=== PATIENT | female | born 1970 | race African-American/Black ===

== ENCOUNTER 2016-08-10 15:36 | Emergency (ER) | payer SELFPAY ==
--- NOTE | 2016-08-10 15:43 | ER Document Report ---
ED Medical Screen (RME) - General Stated Complaint: ABDOMINAL PAIN Mode of Arrival: Ambulatory Information source: Patient Notes: Patient complains of epigastric and right upper quadrant pain for the past 3 days. Patient states pain comes and goes. Patient denies any cough or cold symptoms. Patient denies any fever. Patient has had some vomiting. I have greeted and performed a rapid initial assessment of this patient. A comprehensive ED assessment and evaluation of the patient, analysis of test results and completion of the medical decision making process will be conducted by additional ED providers. TRAVEL OUTSIDE OF THE [place] IN LAST 30 DAYS: No - Related Data Allergies/Adverse Reactions: No Known Allergies Allergy (Verified 08/10/16 15:42) Past Medical History Pulmonary Medical History: Reports: Hx Asthma GI Medical History: Reports: Hx Gastroesophageal Reflux Disease Past Surgical History: Reports: Hx Abdominal Surgery - Laparoscopy for ovarian cysts, Hx Hysterectomy - Immunizations Immunizations up to date: Yes Hx Diphtheria, Pertussis, Tetanus Vaccination: Yes Physical Exam - Vital signs Vitals: Temp Pulse Resp BP Pulse Ox 98.1 F 68 20 151/87 H 99 08/10/16 15:40 08/10/16 15:40 08/10/16 15:40 08/10/16 15:40 08/10/16 15:40 - Abdominal Tenderness: Tender - Epigastric, right upper quadrant Course - Vital Signs Vital signs: Temp Pulse Resp BP Pulse Ox 98.1 F 68 20 151/87 H 99 08/10/16 15:40 08/10/16 15:40 08/10/16 15:40 08/10/16 15:40 08/10/16 15:40
[2016-08-10 16:51] LABS: APPEARANCE,URINE CLEAR; BILIRUBIN,URINE NEGATIVE (NEGATIVE); GLUCOSE, URINE NEGATIVE (NEGATIVE); KETONES,URINE NEGATIVE (NEGATIVE); LEUKOCYTE ESTERASE,URINE NEGATIVE (NEGATIVE); NITRITE,URINE NEGATIVE (NEGATIVE); PROTEIN,URINE NEGATIVE (NEGATIVE); URINE SPECIFIC GRAVITY 1.011
[2016-08-10 16:54] LABS: ABSOLUTE BASOPHILS # (AUTO) 0.1 10^3/uL (0.0-0.2); ABSOLUTE EOSINOPHILS # (AUTO) 0.2 10^3/uL (0.0-0.6); ABSOLUTE LYMPHOCYTES (AUTO) 2.9 10^3/uL (0.5-4.7); ABSOLUTE MONOCYTES (AUTO) 0.6 10^3/uL (0.1-1.4); ABSOLUTE NEUT (AUTO) 5.1 10^3/uL (1.7-8.2); BASOPHILS % (AUTO) 0.6 % (0-2); EOSINOPHILS % (AUTO) 2.5 % (0-6); HEMATOCRIT 41.7 % (36.0-47.0); HEMOGLOBIN 13.1 g/dL (12.0-15.5); HGB HCT DIFFERENCE -2.4; LYMPHOCYTES % (AUTO) 32.4 % (13-45); MEAN CORPUSCULAR HEMOGLOBIN 27.1 pg (27.0-33.4); MEAN CORPUSCULAR HGB CONC 31.4 g/dL (32.0-36.0); MEAN CORPUSCULAR VOLUME 86 fl (80-97); MONOCYTES % (AUTO) 6.5 % (3-13); RED BLOOD COUNT 4.83 10^6/uL (3.72-5.28); RED CELL DISTRIBUTION WIDTH 14.1 % (11.5-14.0); WHITE BLOOD COUNT 8.9 10^3/uL (4.0-10.5)
[2016-08-10 17:12] LABS: ALANINE AMINOTRANSFERASE 839 U/L (9-52); ALBUMIN 3.7 g/dL (3.5-5.0); ALKALINE PHOSPHATASE 148 U/L (38-126); ANION GAP 8 (5-19); ASPARTATE AMINO TRANSFERASE 557 U/L (14-36); BILIRUBIN,TOTAL 1.7 mg/dL (0.2-1.3); BLOOD UREA NITROGEN 12 mg/dL (7-20); CARBON DIOXIDE 32 mmol/L (22-30); CHLORIDE 100 mmol/L (98-107); CREATININE RESULT 0.83 mg/dL (0.52-1.25); GLUCOSE 91 mg/dL (75-110); LIPASE 79.5 U/L (23-300); POTASSIUM 3.7 mmol/L (3.6-5.0); SODIUM 139.8 mmol/L (137-145); TOTAL PROTEIN 6.8 g/dL (6.3-8.2)
--- NOTE | 2016-08-10 18:26 | ER Document Report ---
ED GI/ - General Chief Complaint: Abdominal Pain Stated Complaint: ABDOMINAL PAIN Time seen by provider: 18:24 Mode of Arrival: Ambulatory Information source: Patient TRAVEL OUTSIDE OF THE [place] IN LAST 30 DAYS: No - HPI Patient complains to provider of: Abdominal pain Onset: Yesterday Timing/Duration: Sudden Quality of pain: Sharp, Stabbing Severity at maximum: Severe Severity in ED: Mild Location: Epigastric Associated symptoms: Nausea. denies: Diarrhea, Dysuria, Fever, Vomiting Exacerbated by: Denies Relieved by: Denies Similar symptoms previously: No Recently seen / treated by doctor: No Notes: 08/10/16 18:39 Patient is a 46-year-old female presenting to the emergency room complaining of sharp stabbing pain in the epigastric region started at approximately 2 AM Tuesday morning, she reports nausea associated with it, generalized weakness and darkish colored urine, she denies any vomiting or diarrhea, no fever, no urinary symptoms, patient reports her symptoms have actually improved over the weekend, however she works in a doctor's office and she did a urinalysis today which showed bilirubin in her urine so she came to the emergency room for evaluation, patient has been tolerating by mouth intake without any difficulty and pain is almost completely resolved at time of exam - Related Data Allergies/Adverse Reactions: No Known Allergies Allergy (Verified 08/10/16 15:42) Past Medical History - General Information source: Patient - Social History Smoking Status: Never Smoker Chew tobacco use (# tins/day): No Frequency of alcohol use: Occasional Drug Abuse: None Family History: Reviewed & Not Pertinent Patient has suicidal ideation: No Patient has homicidal ideation: No Pulmonary Medical History: Reports: Hx Asthma Renal/ Medical History: Denies: Hx Peritoneal Dialysis GI Medical History: Reports: Hx Gastroesophageal Reflux Disease Past Surgical History: Reports: Hx Abdominal Surgery - Laparoscopy for ovarian cysts, Hx Hysterectomy - Immunizations Immunizations up to date: Yes Hx Diphtheria, Pertussis, Tetanus Vaccination: Yes Review of Systems - Review of Systems Constitutional: No symptoms reported. denies: Fever EENT: No symptoms reported Cardiovascular: No symptoms reported Respiratory: No symptoms reported Gastrointestinal: Abdominal pain, Nausea. denies: Diarrhea, Vomiting, Poor appetite, Poor fluid intake Genitourinary: No symptoms reported. denies: Dysuria Female Genitourinary: No symptoms reported Musculoskeletal: No symptoms reported Skin: No symptoms reported Hematologic/Lymphatic: No symptoms reported Neurological/Psychological: No symptoms reported -: Yes All other systems reviewed and negative Physical Exam - Vital signs Vitals: Temp Pulse Resp BP Pulse Ox 98.1 F 68 20 151/87 H 99 08/10/16 15:40 08/10/16 15:40 08/10/16 15:40 08/10/16 15:40 08/10/16 15:40 Interpretation: Normal - General General appearance: Appears well, Alert - HEENT Head: Normocephalic, Atraumatic Eyes: Normal Conjunctiva: Normal Extraocular movements intact: Yes Eyelashes: Normal Pupils: PERRL Mouth/Lips: Normal Mucous membranes: Normal - Respiratory Respiratory status: No respiratory distress - Cardiovascular Rhythm: Regular - Abdominal Inspection: Normal Distension: No distension Bowel sounds: Normal Tenderness: Tender - Mild epigastric Organomegaly: No organomegaly - Back Back: Normal, Nontender - Extremities General upper extremity: Normal inspection, Nontender, Normal color, Normal ROM , Normal temperature General lower extremity: Normal inspection, Nontender, Normal color, Normal ROM , Normal temperature, Normal weight bearing. No: Bon's sign - Neurological Neuro grossly intact: Yes Cognition: Normal Orientation: AAOx4 [place] Coma Scale Eye Opening: Spontaneous [place] Coma Scale Verbal: Oriented [place] Coma Scale Motor: Obeys Commands [place] Coma Scale Total: 15 Speech: Normal Motor strength normal: LUE, RUE, LLE, RLE Sensory: Normal - Psychological Associated symptoms: Normal affect, Normal mood - Skin Skin Temperature: Warm Skin Moisture: Dry Skin Color: Normal Course - Re-evaluation Re-evalutation: 08/10/16 18:41 Laboratory results discussed with patient at bedside which are significant for increased AST and ALT, total bili is 1.7, however direct bili is 0, ultrasound shows gallstones with no signs of obstruction, lipase is normal, patient symptoms have improved significantly since onset, she is tolerating by mouth intake, she has declined any pain medication at present time, therefore patient was given a copy of her labs and a slip to have outpatient labs done in approximately one week to ensure that her liver enzymes are trending downward, symptoms likely related to viral illness, she was informed to return to the nearest emergency room immediately if her symptoms should worsen in any way, she develops a fever, food or fluid intolerance, increased pain, or yellowish discoloration to her skin, or any additional concerning findings, patient acknowledges understanding and agreement with this plan - Vital Signs Vital signs: Temp Pulse Resp BP Pulse Ox 98.1 F 68 20 151/87 H 99 08/10/16 15:40 08/10/16 15:40 08/10/16 15:40 08/10/16 15:40 08/10/16 15:40 - Laboratory Result Diagrams: 08/10/16 16:30 08/10/16 16:30 Laboratory results interpreted by me: 08/10/16 08/10/16 08/10/16 16:30 16:30 16:30 MCHC 31.4 L RDW 14.1 H Carbon Dioxide 32 H Total Bilirubin 1.7 H AST 557 H ALT 839 H Alkaline Phosphatase 148 H Urine Urobilinogen 4.0 H - Diagnostic Test Radiology reviewed: Image reviewed, Reports reviewed Discharge - Discharge Clinical Impression: Gallstones, Elevated liver enzymes Abdominal pain Qualifiers: Abdominal location: epigastric Qualified Code(s): R10.13 - Epigastric pain Condition: Stable Disposition: HOME, SELF-CARE Instructions: Abdominal Pain ([facility]), Gallbladder Disease ([facility]), Liver Function Abnormality ([facility]), Family Physicians / Practices Additional Instructions: Follow up with your primary care provider in one to 2 days. Return to the emergency room immediately if symptoms worsen or any additional concerns. Have labs repeated in approximately one week to ensure that liver enzymes are declining. Forms: Follow-Up Laboratory Testing, Elevated Blood Pressure
[2016-08-10 19:10] VITALS: BP 145/78
== END 2016-08-10 19:07 | disposition home or self-care (01) ==
LOC: ER 15:36
DX: K80.80 Other cholelithiasis without obstruction (principal); R94.5 Abnormal results of liver function studies; R10.13 Epigastric pain; R11.0 Nausea
CPT/HCPCS: 36415; 76705; 80053; 81001; 83690; 85025; 99284

== ENCOUNTER 2016-08-17 05:55 | Inpatient (IN) | payer BC ==
[2016-08-17 06:39] LABS: ABSOLUTE EOSINOPHILS # (AUTO) 0.1 10^3/uL (0.0-0.6); ABSOLUTE LYMPHOCYTES (AUTO) 1.7 10^3/uL (0.5-4.7); ABSOLUTE MONOCYTES (AUTO) 0.8 10^3/uL (0.1-1.4); ABSOLUTE NEUT (AUTO) 8.6 10^3/uL (1.7-8.2); BASOPHILS % (AUTO) 0.3 % (0-2); EOSINOPHILS % (AUTO) 0.7 % (0-6); HEMATOCRIT 40.1 % (36.0-47.0); HGB HCT DIFFERENCE -1.1; LYMPHOCYTES % (AUTO) 15.4 % (13-45); MEAN CORPUSCULAR HEMOGLOBIN 27.7 pg (27.0-33.4); MEAN CORPUSCULAR HGB CONC 32.5 g/dL (32.0-36.0); MEAN CORPUSCULAR VOLUME 85 fl (80-97); RED BLOOD COUNT 4.71 10^6/uL (3.72-5.28); RED CELL DISTRIBUTION WIDTH 13.7 % (11.5-14.0); SEGMENTED NEUTROPHILS % (AUTO) 76.6 % (42-78); WHITE BLOOD COUNT 11.3 10^3/uL (4.0-10.5)
[2016-08-17] MEDS ORDERED: ONDANSETRON HCL INJ/PF 4 MG/2 ML SDV IV ONE (06:46)
[2016-08-17] MEDS ORDERED: MORPHINE SULFATE 10 MG/ML INJ IV ONE ×2 (06:46→19:00)
[2016-08-17 06:47] LABS: ALANINE AMINOTRANSFERASE 302 U/L (9-52); ALKALINE PHOSPHATASE 122 U/L (38-126); ANION GAP 12 (5-19); ASPARTATE AMINO TRANSFERASE 227 U/L (14-36); BILIRUBIN,TOTAL 1.3 mg/dL (0.2-1.3); BLOOD UREA NITROGEN 13 mg/dL (7-20); CALCIUM 9.9 mg/dL (8.4-10.2); CARBON DIOXIDE 26 mmol/L (22-30); CHLORIDE 103 mmol/L (98-107); CREATININE RESULT 0.78 mg/dL (0.52-1.25); GLUCOSE 144 mg/dL (75-110); LIPASE 70.6 U/L (23-300); POTASSIUM 4.2 mmol/L (3.6-5.0); SODIUM 141.1 mmol/L (137-145); TOTAL PROTEIN 6.7 g/dL (6.3-8.2)
--- NOTE | 2016-08-17 07:24 | ER Document Report ---
ED General - General Chief Complaint: Abdominal Pain Stated Complaint: RIGHT SIDE FLANK PAIN Mode of Arrival: Ambulatory Information source: Patient Notes: 46-year-old female presents with complaints of epigastric abdominal pain. Patient notes she was here one week prior was diagnosed with elevated liver enzymes, patient was told to follow-up for lab work in 1 week, patient states she was do lab work tomorrow. Denies any fevers admits to nausea, notes pain had improved but started up again this morning TRAVEL OUTSIDE OF THE [place] IN LAST 30 DAYS: No - HPI Onset: Just prior to arrival Onset/Duration: Sudden Quality of pain: Sharp Severity: Mild Pain Level: 1 Associated symptoms: Nausea Exacerbated by: Denies Relieved by: Denies Similar symptoms previously: Yes Recently seen / treated by doctor: Yes - Related Data Allergies/Adverse Reactions: No Known Allergies Allergy (Verified 08/10/16 15:42) Past Medical History - Social History Smoking Status: Never Smoker Cigarette use (# per day): No Chew tobacco use (# tins/day): No Smoking Education Provided: No Frequency of alcohol use: Occasional Drug Abuse: None Family History: Reviewed & Not Pertinent Patient has suicidal ideation: No Patient has homicidal ideation: No Pulmonary Medical History: Reports: Hx Asthma Renal/ Medical History: Denies: Hx Peritoneal Dialysis GI Medical History: Reports: Hx Gastroesophageal Reflux Disease Past Surgical History: Reports: Hx Abdominal Surgery - Laparoscopy for ovarian cysts, Hx Hysterectomy - Immunizations Immunizations up to date: Yes Hx Diphtheria, Pertussis, Tetanus Vaccination: Yes Review of Systems - Review of Systems Notes: REVIEW OF SYSTEMS: CONSTITUTIONAL : Denies fever, chills, or sweats. Denies recent illness. EENT: Denies eye, ear, throat, or mouth pain or symptoms. Denies nasal or sinus congestion or discharge. Denies throat, tongue, or mouth swelling or difficulty swallowing. CARDIOVASCULAR: Denies chest pain. Denies palpitations or racing or irregular heart beat. Denies ankle edema. RESPIRATORY: Denies cough, cold, or chest congestion. Denies shortness of breath, difficulty breathing, or wheezing. GASTROINTESTINAL: Admits to abdominal pain GENITOURINARY: Denies difficulty urinating, painful urination, burning, frequency, blood in urine, or discharge. FEMALE GENITOURINARY: Denies vaginal bleeding, heavy or abnormal periods, irregular periods. Denies vaginal discharge or odor. MUSCULOSKELETAL: Denies back or neck pain or stiffness. Denies joint pain or swelling. SKIN: Denies rash, lesions or sores. HEMATOLOGIC : Denies easy bruising or bleeding. LYMPHATIC: Denies swollen, enlarged glands. NEUROLOGICAL: Denies confusion or altered mental status. Denies passing out or loss of consciousness. Denies dizziness or lightheadedness. Denies headache. Denies weakness or paralysis or loss of use of either side. Denies problems with gait or speech. Denies sensory loss, numbness, or tingling. Denies seizures. PSYCHIATRIC: Denies anxiety or stress. Denies depression, suicidal ideation, or homicidal ideation. ALL OTHER SYSTEMS REVIEWED AND NEGATIVE. Dictation was performed using [employer] voice recognition software PHYSICAL EXAMINATION: GENERAL: Well-appearing, well-nourished and in no acute distress. HEAD: Atraumatic, normocephalic. EYES: Pupils equal round and reactive to light, extraocular movements intact, conjunctiva are normal. ENT: Nares patent, oropharynx clear without exudates. Moist mucous membranes. NECK: Normal range of motion, supple without lymphadenopathy LUNGS: Breath sounds clear to auscultation bilaterally and equal. No wheezes rales or rhonchi. HEART: Regular rate and rhythm without murmurs ABDOMEN: Soft, tender in epigastric region with out any rebound or guarding Female : deferred Musculoskeletal: Normal range of motion, no pitting or edema. No cyanosis. NEUROLOGICAL: Cranial nerves grossly intact. Normal speech, normal gait. Normal sensory, motor exams PSYCH: Normal mood, normal affect. SKIN: Warm, Dry, normal turgor, no rashes or lesions noted. Physical Exam - Vital signs Vitals: Temp Pulse Resp BP Pulse Ox 97.5 F 66 20 114/82 97 08/17/16 06:01 08/17/16 06:01 08/17/16 06:01 08/17/16 06:01 08/17/16 06:01 Course - Re-evaluation Re-evalutation: 08/17/16 07:23 Physical examination does note tenderness, patient was given nausea pain control. Her liver enzymes do note improvement, I'm awaiting ultrasound at this time 08/17/16 08:44 Patient's liver enzymes have improved however ultrasound has positive Scott sign with gallstones, I did speak with the surgeon who will admit the patient to his service - Vital Signs Vital signs: Temp Pulse Resp BP Pulse Ox 97.5 F 66 20 114/82 97 08/17/16 06:01 08/17/16 06:01 08/17/16 06:01 08/17/16 06:01 08/17/16 06:01 - Laboratory Result Diagrams: 08/17/16 06:20 08/17/16 06:20 Laboratory results interpreted by me: 08/17/16 08/17/16 06:20 06:20 WBC 11.3 H Absolute Neutrophils 8.6 H Glucose 144 H AST 227 H ALT 302 H - Diagnostic Test Radiology reviewed: Image reviewed, Reports reviewed Discharge - Discharge Clinical Impression: Gallstones Abdominal pain Qualifiers: Abdominal location: epigastric Qualified Code(s): R10.13 - Epigastric pain Condition: Stable Disposition: ADMITTED INPATIENT Admitting Provider: Surgicalist Unit Admitted: Surgical Floor
[2016-08-17 09:02] LABS: APPEARANCE,URINE SLIGHTLY-CLOUDY; BILIRUBIN,URINE NEGATIVE (NEGATIVE); GLUCOSE, URINE NEGATIVE (NEGATIVE); KETONES,URINE NEGATIVE (NEGATIVE); LEUKOCYTE ESTERASE,URINE NEGATIVE (NEGATIVE); NITRITE,URINE NEGATIVE (NEGATIVE); PROTEIN,URINE NEGATIVE (NEGATIVE); URINE SPECIFIC GRAVITY 1.026
[2016-08-17] MEDS ORDERED: MORPHINE SULFATE 10 MG/ML INJ IV PRN (18:01)
[2016-08-17] MEDS ORDERED: ONDANSETRON HCL INJ/PF 4 MG/2 ML SDV IV PRN (18:02)
[2016-08-17] MEDS ORDERED: MORPHINE SULFATE 10 MG/ML INJ ONE (18:11)
[2016-08-17] MEDS ORDERED: INFLUENZA ADLT QUAD (36MOS+) 2016-17 VAC 0.5 ML SYR IM PRN (18:57)
[2016-08-17] MEDS: PIPERACILLIN SODIUM/TAZOBACTAM 3.375 GM in NORMAL SALINE 100 ML IV SCH (20:34)
--- NOTE | 2016-08-17 20:53 | PDOC H&P ---
History of Present Illness Admission Date/PCP: 08/17/16 18:09 History of Present Illness: CATALINO OCONNOR is a 46 year old -[place] female first presented to the emergency room approximately one week ago with acute onset of epigastric and right upper quadrant pain. 10 out of 10. Sharp. Radiated to her right flank and back. Pain was severe for 2 hours then gradually abated. also had tremors , itching, nausea and vomiting, dark urine, itching, shortness of breath. She presented to the emergency room. LFTs were elevated. She was scheduled in one week for recheck. She did not make it a complete week before her pain recurred. pain recurred today at 2 AM. She was awoken from sleep with severe, sharp, 10/10, epigastric, right upper quadrant in which radiated to her back. Also had shortness of breath, nausea, vomiting. [place] flush. ROS also positive for headache, darker urine, but not as dark as last week, itching but not as much as last week. Right upper quadrant ultrasound was obtained which revealed cholelithiasis and a positive Scott sign but otherwise normal. White count is mildly elevated. Surgery was consulted. Patient has had severe angioedema of unknown etiology. Past surgical history: Hysterectomy and laparoscopic surgery for ovarian cyst. Medications: Nexium and hydrochlorothiazide. Allergies: She is allergic to shrimp, peanuts, blueberries, blackberries, raspberries. Family history: Diabetes, heart disease, hypertension. Mother had a heparin allergy, otherwise denies any family or personal history of bleeding disorders, blood clots or anesthesia problems. Past Medical History Cardiac Medical History: Reports: Hypertension EENT Medical History: Reports: Other - Angioedema GI Medical History: Reports: Gastroesophageal Reflux Disease Past Surgical History Past Surgical History: Reports: Hysterectomy, Other - Laparoscopic surgery for ovarian cyst Social History Information Source: Patient Lives with: Family Smoking Status: Never Smoker Frequency of Alcohol Use: Occasional - 1 or 2 glasses of wine per week Hx Recreational Drug Use: No Drugs: None Hx Prescription Drug Abuse: No Family History Family History: CAD - Both mother and father with heart attacks and heart disease., DM, Hypertension Parental Family History Reviewed: Yes Children Family History Reviewed: Yes Sibling(s) Family History Reviewed.: Yes Medication/Allergy Home Medications: No Home Medications 08/17/16 Allergies/Adverse Reactions: blueberry Allergy (Verified 08/17/16 20:43) peanut Allergy (Verified 08/17/16 20:43) raspberry Allergy (Verified 08/17/16 20:43) shrimp Allergy (Verified 08/17/16 20:41) Review of Systems All systems: reviewed and no additional remarkable complaints except as stated Physical Exam Vital Signs: Temp Pulse Resp BP Pulse Ox 98.3 F 57 L 16 127/63 H 100 08/17/16 19:45 08/17/16 19:45 08/17/16 19:45 08/17/16 19:45 08/17/16 19:45 General appearance: PRESENT: no acute distress, obese Head exam: PRESENT: normocephalic Eye exam: PRESENT: EOMI. ABSENT: scleral icterus Mouth exam: PRESENT: neck supple, tongue midline Neck exam: ABSENT: JVD, lymphadenopathy, tenderness, thyromegaly Respiratory exam: PRESENT: clear to auscultation christiano Cardiovascular exam: PRESENT: RRR GI/Abdominal exam: PRESENT: Scott's sign, soft, tenderness - Epigastric and right upper quadrant tenderness. Minor right flank/back tenderness.. ABSENT: distended, guarding, rebound Extremities exam: ABSENT: pedal edema Musculoskeletal exam: ABSENT: deformity Neurological exam: PRESENT: alert, oriented to person, oriented to place, oriented to time, oriented to situation Psychiatric exam: PRESENT: appropriate affect, normal mood Skin exam: ABSENT: jaundice Results Laboratory Results: Labs reviewed Impressions: Abdomen Ultrasound 08/17/16 06:57 IMPRESSION: Cholelithiasis with a positive sonographic Scott's sign. No gallbladder wall thickening or pericholecystic edema. Status: Image reviewed by me Assessment & Plan - Diagnosis (1) Cholecystitis, acute with cholelithiasis Qualifiers: Cholelithiasis location: gallbladder Is this a current diagnosis for this admission?: YesPlan: I suspect her bout of pain, dark urine and itching a week ago involved choledocholithiasis which passed spontaneously. Currently with acute cholecystitis with cholelithiasis. nothing by mouth at midnight. IV fluids. IV antibiotics. SCDs. Incentive spirometry. We discussed laparoscopic cholecystectomy with cholangiogram in detail. Questions were answered. We discussed the risks, benefits and alternatives including , heart attack, stroke, blood clots in the legs, blood clots in lungs, pneumonia, bleeding, infection, hernia, bile leak, failure of symptoms to resolve, long-term diarrhea , damage to surrounding structures such as liver, bladder, bowels, blood vessels or bile duct resulting in serious long-term health issues. We discussed the possibility of retained stone with need for further procedure such as ERCP. Understands and wishes to proceed. (2) GERD (gastroesophageal reflux disease) Is this a current diagnosis for this admission?: YesPlan: Protonix while inpatient. (3) Obesity, Class II, BMI 35-39.9, with comorbidity Is this a current diagnosis for this admission?: Yes (4) Angioedema Is this a current diagnosis for this admission?: YesPlan: Unclear etiology. Will notify anesthesia prior to surgery.
[2016-08-18] MEDS: PIPERACILLIN SODIUM/TAZOBACTAM 3.375 GM in NORMAL SALINE 100 ML IV SCH ×3 (03:22→16:02)
[2016-08-18 06:06] LABS: HEMATOCRIT 38.7 % (36.0-47.0); HEMOGLOBIN 12.5 g/dL (12.0-15.5); HGB HCT DIFFERENCE -1.2; MEAN CORPUSCULAR HEMOGLOBIN 27.9 pg (27.0-33.4); MEAN CORPUSCULAR HGB CONC 32.3 g/dL (32.0-36.0); MEAN CORPUSCULAR VOLUME 87 fl (80-97); RED BLOOD COUNT 4.47 10^6/uL (3.72-5.28); RED CELL DISTRIBUTION WIDTH 14.3 % (11.5-14.0); WHITE BLOOD COUNT 9.8 10^3/uL (4.0-10.5)
[2016-08-18 06:29] LABS: ALANINE AMINOTRANSFERASE 314 U/L (9-52); ALBUMIN 3.1 g/dL (3.5-5.0); ALKALINE PHOSPHATASE 110 U/L (38-126); ANION GAP 9 (5-19); ASPARTATE AMINO TRANSFERASE 162 U/L (14-36); BILIRUBIN,TOTAL 1.2 mg/dL (0.2-1.3); BLOOD UREA NITROGEN 14 mg/dL (7-20); CALCIUM 9.1 mg/dL (8.4-10.2); CARBON DIOXIDE 28 mmol/L (22-30); CHLORIDE 103 mmol/L (98-107); CREATININE RESULT 0.86 mg/dL (0.52-1.25); GLUCOSE 108 mg/dL (75-110); SODIUM 139.7 mmol/L (137-145); TOTAL PROTEIN 5.8 g/dL (6.3-8.2)
[2016-08-18] MEDS ORDERED: ACETAMINOPHEN 325 MG TABLET PO PRN (06:48)
[2016-08-18] MEDS ORDERED: ACETAMINOPHEN 325 MG TABLET ONE (06:54)
[2016-08-18] MEDS ORDERED: LIDOCAINE 1% INJ-PF (10 MG/ML) 30 ML SDV ONE (07:28)
[2016-08-18] MEDS ORDERED: BUPIVACAINE HCL 0.25% /EPINEPHRINE INJ/PF 30 ML SDV ONE (07:28)
[2016-08-18] MEDS ORDERED: PROPOFOL INJ 200 MG/20 ML VIAL IV ONE (09:17)
[2016-08-18] MEDS ORDERED: ACETAMINOPHEN 0 ML IV ONE (09:17)
[2016-08-18] MEDS ORDERED: HYDROMORPHONE HCL INJ/PF 2 MG/ML AMPULE ONE (09:17)
[2016-08-18] MEDS ORDERED: MIDAZOLAM 2 MG/2 ML INJ ONE (09:17)
[2016-08-18] MEDS ORDERED: FENTANYL CITRATE INJ/PF 250 MCG/5 ML AMPULE ONE (09:17)
--- NOTE | 2016-08-18 09:21 | PDOC PROGRESS REPORT ---
Subjective Progress Note for:: 08/18/16 Subjective:: Mild nausea earlier this morning, no vomiting. Still with right upper quadrant pain. Headache. Physical Exam Vital Signs: Temp Pulse Resp BP Pulse Ox 97.7 F 56 L 20 114/59 L 99 08/18/16 08:11 08/18/16 08:11 08/18/16 08:11 08/18/16 08:11 08/18/16 08:11 Intake & Output 08/17/16 08/18/16 08/19/16 06:59 06:59 06:59 Intake Total 500 Balance 500 Weight 114.7 kg General appearance: PRESENT: no acute distress Head exam: PRESENT: normocephalic Eye exam: PRESENT: EOMI Respiratory exam: PRESENT: clear to auscultation christiano Cardiovascular exam: PRESENT: RRR GI/Abdominal exam: PRESENT: Scott's sign, soft, tenderness. ABSENT: distended , guarding, rebound Neurological exam: PRESENT: alert, oriented to situation Psychiatric exam: PRESENT: appropriate affect, normal mood Results Laboratory Results: 08/18/16 05:41 08/18/16 05:41 08/18/16 08/18/16 05:41 05:41 WBC 9.8 RBC 4.47 Hgb 12.5 Hct 38.7 MCV 87 MCH 27.9 MCHC 32.3 RDW 14.3 H Plt Count 268 Sodium 139.7 Potassium 4.0 Chloride 103 Carbon Dioxide 28 Anion Gap 9 BUN 14 Creatinine 0.86 Est GFR ( Amer) > 60 Est GFR (Non-Af Amer) > 60 Glucose 108 Calcium 9.1 Total Bilirubin 1.2 AST 162 H ALT 314 H Alkaline Phosphatase 110 Total Protein 5.8 L Albumin 3.1 L Impressions: Abdomen Ultrasound 08/17/16 06:57 IMPRESSION: Cholelithiasis with a positive sonographic Scott's sign. No gallbladder wall thickening or pericholecystic edema. Assessment & Plan - Diagnosis (1) Cholecystitis, acute with cholelithiasis Qualifiers: Cholelithiasis location: gallbladder Is this a current diagnosis for this admission?: YesPlan: Acute cholecystitis with cholelithiasis. Wishes to proceed with laparoscopic cholecystectomy. Due to her allergy to shrimp and her due to her shrimp allergy and history of angioedema, we will avoid Betadine or iodine prep. We will also forego Isovue contrast for the cholangiogram. We will still try to insert a cholangio-catheter and flush injectable saline through the cystic duct. (2) GERD (gastroesophageal reflux disease) Is this a current diagnosis for this admission?: Yes (3) Obesity, Class II, BMI 35-39.9, with comorbidity Is this a current diagnosis for this admission?: Yes (4) Angioedema Is this a current diagnosis for this admission?: Yes
[2016-08-18] MEDS ORDERED: MEPERIDINE HCL/PF INJ 25 MG/1 ML DISP.SYRIN IV PRN (10:17)
[2016-08-18] MEDS ORDERED: DIPHENHYDRAMINE HCL 50 MG/ML VIAL IV PRN (10:17)
[2016-08-18] MEDS ORDERED: MORPHINE SULFATE 10 MG/ML INJ IV PRN (10:17)
[2016-08-18] MEDS ORDERED: PROMETHAZINE HCL INJ 25 MG/1 ML VIAL IV PRN ×2 (10:17)
[2016-08-18] MEDS ORDERED: FENTANYL CITRATE INJ/PF 100 MCG/2 ML AMPUL IV PRN ×3 (10:17)
[2016-08-18] MEDS ORDERED: OXYCODONE-ACETAMINOPHEN 5-325 MG TABLET PO PRN ×2 (10:17)
--- NOTE | 2016-08-18 11:02 | Operative Report ---
Operative Report DATE OF SURGERY: 08/18/16 PREOPERATIVE DIAGNOSIS: Acute cholecystitis with cholelithiasis POSTOPERATIVE DIAGNOSIS: Acute cholecystitis with cholelithiasis. Small stones milked back out of the cystic duct. OPERATION: Laparoscopic cholecystectomy with interrogation of the cystic duct SURGEON: ESE LLANOS [employer] ENGINEER: LEATHA SO ANESTHESIA: GA TISSUE REMOVED OR ALTERED: Gallbladder with stones COMPLICATIONS: None noted ESTIMATED BLOOD LOSS: minimal INTRAOPERATIVE FINDINGS: Acute cholecystitis with cholelithiasis. Small stones were found in the cystic duct and milked back. A cholangiogram with Isovue contrast was not performed due to the patient's allergy to shrimp as well as her history of angioedema. After the stones were removed from the cystic duct, injectable saline was injected down a cholangiocatheter through the cystic duct without difficulty. PROCEDURE: The patient was brought to the operative suite and placed supine on the OR table. Timeout was performed. Antibiotics were administered. Padding and positioning was appropriate. The patient was induced, intubated and maintained on general endotracheal anesthesia throughout the procedure. Patient was prepped and draped in the normal sterile fashion. The skin above the umbilicus was infiltrated with local anesthetic. A 5 mm incision was made. The patient was very deep at the umbilicus, and another 5 mm incision 6 cm cephalad to the umbilical incision was made. The patient was even deeper at that incision, so attention was turned back to the umbilical incision. A [place] was used to dissect down to level of fascia. A 5 mm defect was found at the base the fascia. A Visiport trocar with camera inserted was used to obtain an abdominal access through the small umbilical defect. High flow insufflation yielded low opening pressures. A pneumoperitoneum of 15 mmHg was obtained and maintained with procedure. Trocar and camera were placed through this incision confirming entry into the abdominal cavity without incident. Next the 11 mm epigastric and the two 5 mm right subcostal trochars were placed in the normal location and fashion under direct visualization, after infiltration with local anesthetic. Instruments were introduced. The abdominal cavity was surveyed and appeared normal except for the gallbladder. The gallbladder showed evidence of acute cholecystitis. There were adhesions to the gallbladder which were taken down with a combination of electrocautery and blunt dissection. The fundus of the gallbladder was elevated over the liver edge. The dissection the gallbladder began on the lateral aspect. Dissection continued down to the triangle of Calot. The cystic artery and the cystic duct were dissected out and seen to be clearly entering the gallbladder with no obscuration. The cystic duct was clipped adjacent to the gallbladder. [A ductotomy was made. Small stones were found in the cystic duct and milked back. A cholangiogram with Isovue contrast was not performed due to the patient's allergy to shrimp as well as her history of angioedema. After the stones were removed from the cystic duct, injectable saline was injected down a cholangiocatheter through the cystic duct without difficulty. The cystic duct was clipped 3 times proximally and divided between clips. The cystic artery was clipped twice proximally and once distally against the gallbladder and divided between the clips. The gallbladder was removed from the gallbladder fossa with hook electrocautery. It was placed in an Endo Catch bag and removed through the epigastric trocar site. It was sent to pathology for further analysis. The field was irrigated and suctioned. The field was intact with no leakage of bile or blood. Clips were in place. The abdominal cavity was surveyed and was unremarkable. Trocar sites were infiltrated with more local anesthetic. The epigastric trocar site was closed at the level of the fascia with 0 Vicryl suture using the Endo Close needle. Pneumoperitoneum was released. Trochars were removed. Incisions were closed at the level of the skin with 4-0 Monocryl. The closed incisions were dressed with benzoin tincture, Steri- Strips and Band-Aids. All lap needle sponge counts were correct. The patient tolerated procedure well and was taken recovery in stable condition. TOÑO Crook was present and assisted for the entirety of the case. She provided larson assistance with a variety of tasks including but not limited to obtaining pneumoperitoneum, operating camera, retracting, and closing incisions.
[2016-08-18] MEDS: PANTOPRAZOLE SODIUM 40 MG VIAL IV SCH (11:58)
[2016-08-18] MEDS ORDERED: NEOSTIGMINE METHYLSULFATE 10 MG/10 ML VIAL ONE (12:40)
[2016-08-18] MEDS ORDERED: SUCCINYLCHOLINE CHLORIDE INJ 200 MG/10 ML VIAL ONE (12:40)
[2016-08-18] MEDS ORDERED: ROCURONIUM BROMIDE INJ 50 MG/5 ML VIAL IV ONE (12:40)
[2016-08-18] MEDS ORDERED: DEXAMETHASONE SOD PHOSPHATE INJ 4 MG/1 ML VIAL ONE (12:40)
[2016-08-18] MEDS ORDERED: ONDANSETRON HCL INJ/PF 4 MG/2 ML SDV ONE (12:40)
[2016-08-18] MEDS ORDERED: GLYCOPYRROLATE INJ 0.4 MG/2 ML VIAL ONE (12:40)
[2016-08-18] MEDS: HYDROCODONE/ACETAMINOPHEN 5-325 MG TABLET PO PRN ×2 (19:10→22:22)
[2016-08-18] MEDS ORDERED: DOCUSATE SODIUM 100 MG CAPSULE PO ONE (20:00)
[2016-08-18] MEDS ORDERED: PIPERACILLIN SODIUM/TAZOBACTAM 3.375 GM in NORMAL SALINE 100 ML IV ONE (21:00)
[2016-08-18] MEDS ORDERED: MORPHINE SULFATE 10 MG/ML INJ INJ ONE (23:00)
[2016-08-19] MEDS: HYDROCODONE/ACETAMINOPHEN 5-325 MG TABLET PO PRN (07:45)
--- NOTE | 2016-08-19 09:15 | PDOC PROGRESS REPORT ---
Subjective Progress Note for:: 08/19/16 Subjective:: Feels well. Tolerating diet well. Ambulating. Physical Exam Vital Signs: Temp Pulse Resp BP Pulse Ox 97.7 F 52 L 15 110/54 L 97 08/18/16 15:30 08/18/16 15:30 08/18/16 15:30 08/18/16 15:30 08/18/16 15:30 Intake & Output 08/18/16 08/19/16 08/20/16 06:59 06:59 06:59 Intake Total 500 2690 Output Total 375 Balance 500 2315 Weight 114.7 kg 129.6 kg General appearance: PRESENT: no acute distress Respiratory exam: PRESENT: clear to auscultation christiano Cardiovascular exam: PRESENT: RRR GI/Abdominal exam: PRESENT: other - Soft, nondistended, nontender to palpation. Wounds clean dry and intact. Extremities exam: PRESENT: other - No swelling no tenderness. Results Laboratory Results: 08/18/16 05:41 08/18/16 05:41 Impressions: Abdomen Ultrasound 08/17/16 06:57 IMPRESSION: Cholelithiasis with a positive sonographic Scott's sign. No gallbladder wall thickening or pericholecystic edema. Assessment & Plan - Diagnosis (1) Cholecystitis, acute with cholelithiasis Qualifiers: Cholelithiasis location: gallbladder Is this a current diagnosis for this admission?: YesPlan: Status post the laparoscopic cholecystectomy. Looks very good. We'll discharge patient home.
--- NOTE | 2016-08-19 09:45 | DISCHARGE SUMMARY E ---
Discharge Summary NAME: CATALINO OCONNOR : 1970 AGE: 46Y ADMITTED: 08/17/2016 DISCHARGED: 08/19/2016 FINAL DIAGNOSIS: Acute cholecystitis. PROCEDURE PERFORMED DURING HOSPITALIZATION: Laparoscopic cholecystectomy by Elvin Murray MD on 08/18/2016. HOSPITAL COURSE: The patient underwent the above-mentioned surgery. She did well. Postoperatively, she had resolution of her preoperative symptoms. She was tolerating a diet well. She was ambulating well. Her abdominal exam looked good. The patient is now being discharged to home in good condition. She is encouraged to stay active at home. She will follow up with Dr. Murray in 2 weeks. She may follow a low-fat diet. DISCHARGE MEDICATIONS: Percocet 1 p.o. every 4 hours p.r.n. pain. DICTATING PHYSICIAN: KLEVER SANTOS M.D. [id number] PHY#: [id number] ID: [id number] JOB#: [id number] ACCT: [id number] cc:Quintin SPEARS M.D. >
[2016-08-19] MEDS: PANTOPRAZOLE SODIUM 40 MG VIAL IV SCH (09:57)
[2016-08-19] MEDS ORDERED: DOCUSATE SODIUM 100 MG CAPSULE PO SCH (10:00)
[2016-08-19 10:44] VITALS: BP 120/56
== END 2016-08-19 12:30 | disposition home or self-care (01) | DRG 418 ==
LOC: ER 05:55 → EH 09:06 → UNDOADMIN 09:06 → 4W 16:00 → EH 16:00 → 4W 18:09
PROVIDERS: ADMIT Surgery; ATTEND Surgery
PROC: 0FT44ZZ Resection of Gallbladder, Percutaneous Endoscopic Approach (ICD-10-PCS; principal; 2016-08-18 09:45)
DX: K80.00 Calculus of gallbladder with acute cholecystitis without obstruction (principal); Z68.41 Body mass index [BMI] 40.0-44.9, adult; K21.9 Gastro-esophageal reflux disease without esophagitis; J45.909 Unspecified asthma, uncomplicated; I10 Essential (primary) hypertension; T78.3XXA Angioneurotic edema, initial encounter; E66.9 Obesity, unspecified
CPT/HCPCS: 36415; 76705; 790; 80053; 81001; 83690; 85025; 85027; 88304; 94799; 96374; 96375; 99285; J0131; J0330; J1100; J1170; J2250; J2270; J2405; J2543; J2704; J3010; J3490; S0164

== ENCOUNTER 2017-11-23 22:13 | Emergency (ER) | payer BC | END 2017-11-23 23:30 | disposition left against medical advice (07) | LOC: ER 22:13 | DX: Z53.21 Procedure and treatment not carried out due to patient leaving prior to being seen by health care provider (principal); R06.02 Shortness of breath ==

== ENCOUNTER → 2018-05-17 | Outpatient (CLI) | payer BC, OTHER ==
--- NOTE | 2018-05-17 15:36 | WOMENS IMAGING REPORT ---
EXAM DESCRIPTION: BILAT SCREENING MAMMO W/CAD COMPLETED DATE/TIME: 05/17/2018 1:51 pm REASON FOR STUDY: BILATERAL SCREENING MAMMO /Z12.31 Z12.31 ENCNTR SCREEN MAMMOGRAM FOR MALIGNANT NE OPLASM OF EMIGDIO COMPARISON: 2015 TECHNIQUE: Standard craniocaudal and mediolateral oblique views of each breast recorded using AltaVitasa l acquisition. LIMITATIONS: None. FINDINGS: No masses, calcifications or architectural distortion. No areas of suspicion. Read with the assistance of CAD. [facility] R2 Cenova Version 1.3 .[facility] - R2 Cenova Version 1.3 .[facility] - R2 Cenova Version 2.4 .[facility]2 Cenova Version 2.4 .[facility] - R2 Banking Teacher Version 9.2 IMPRESSION: NORMAL MAMMOGRAM. BIRADS 1. BREAST DENSITY: b. There are scattered areas of fibroglandular density. BIRAD: 1 NEGATIVE RECOMMENDATION: ROUTINE SCREENING COMMENT: The patient has been notified of the results by letter per [place] requirements. Additional no tification policies are in place for contacting patient with suspicious or incomplete findings. Quality ID #[id number]: The [employer] recommends an annual screening mammogram for women aged 40 years or over. This facility utilizes a reminder system to ensure that all patients receive reminder letters, and/or direct phone calls for appointments. This includes reminders for routine scr eening mammograms, diagnostic mammograms, or other Breast Imaging Interventions when appropriate. Th is patient will be placed in the appropriate reminder system. The [employer] (ACR) has developed recommendations for screening MRI of the breast s in certain patient populations, to be used in conjunction with mammography. Breast MRI surveillanc e may be appropriate for women with more than 20% lifetime risk of developing breast cancer as deter mined by genetic testing, significant family history of the disease, or history of mantle radiation f or Hodgkins Disease. ACR Practice Guidelines 2008. TECHNICAL DOCUMENTATION: FINDING NUMBER: (1) ASSESSMENT: (1) JOB ID: [id number] [employer]- All Rights Reserved Reading location - IP/workstation name: [email or web address]
== END ==
LOC: WI 13:09
PROVIDERS: ATTEND Nurse Practitioner Family
DX: Z12.31 Encounter for screening mammogram for malignant neoplasm of breast (principal)
CPT/HCPCS: 77067

== ENCOUNTER → 2019-07-26 | Outpatient (CLI) | payer OTHER ==
--- NOTE | 2019-07-26 20:12 | XCELERA REPORT ---
[address] [address] Transthoracic Echocardiogram Report Name: CATALINO OCONNOR Age: 49 yrs Gender: Female : 1970 Patient Status: Outpatient Patient Location: Study Date: 07/26/2019 09:22 AM Height: 69 in Weight: 254 lb BSA: 2.3 m2 Reason For Study: EDEMA Ordering Physician: ARSALAN YE Performed By: Joe Wang Interpretation Summary RA mildly enlarged, Mild TR with mod Pulm Hypertension RVSP 41mm Hg with RAP (8mmHg). No RV enlargement. Min post pericardial effusion. Mild aortic root calcium, not dilated. AV not calcified, 3 cusps, no , no AR. Mod. mitral annular calcification, no MVP, no MS, mild MR with no LA enlargement. GARY 24.5 ml/m2 Mild conc. LVH with normal LVEF 65% and no LV diastolic dysfunction. No segmental wall motion abn. no LV enlargement. Trace ME. Summary, mild/mod pulm hypertension RVSP 41mm Hg.with RA mildly enlarged. Normal LVEF 65% with no LVDD, and no segmental RWMA. MMode/2D Measurements & Calculations RVDd: 4.0 cm LVIDd: 4.4 cm FS: 41.2 % Ao root diam: 2.8 cm IVSd: 1.1 cm LVIDs: 2.6 cm EDV(Teich): Ao root area: LVPWd: 1.1 cm 87.0 ml ESV(Teich): 6.0 cm2 24.1 ml LA dimension: 3.9 cm EF(Teich): 72.3 % LVLd ap4: 8.1 cm SV(MOD-sp4): EDV(MOD-sp4): 70.0 ml 104.0 ml LVLs ap4: 6.5 cm ESV(MOD-sp4): 34.0 ml EF(MOD-sp4): 67.3 % Doppler Measurements & Calculations MV E max martin: MV P1/2t max martin: Ao V2 max: LV V1 max P.5 cm/sec 73.2 cm/sec 126.0 cm/sec 4.9 mmHg MV A max martin: MV P1/2t: 57.0 msec Ao max PG: LV V1 max: 45.5 cm/sec 6.3 mmHg 110.3 cm/sec MV E/A: 1.3 MVA(P1/2t): 3.9 cm2 MV dec slope: 375.8 cm/sec2 MV dec time: 0.22 sec PA V2 max: PI end-d martin: TR max martin: MV P1/2t-pr_phl: 80.0 cm/sec 113.4 cm/sec 329.1 cm/sec 57.0 msec PA max PG: TR max P.6 mmHg 43.3 mmHg I WMSI = 1.00 % Normal = 100 Segments Size X - Cannot 1 - Normal 2 - 3 - Akinetic4 - 1-2 small Interpret Hypokinetic Dyskinetic 3-5 moderate 5 - 6-14 large Aneurysmal 15-16 diffuse : ARSALAN YE, Dk
== END ==
LOC: SP 09:02
PROVIDERS: ATTEND Nurse Practitioner Family
DX: I27.20 Pulmonary hypertension, unspecified (principal); R60.9 Edema, unspecified
CPT/HCPCS: 93306

== ENCOUNTER → 2020-03-15 | Outpatient (CLI) | payer OTHER ==
--- NOTE | 2020-03-15 12:49 | RADIOLOGY REPORT (SQ) ---
EXAM DESCRIPTION: SHOULDER LEFT 2 OR MORE VIEWS IMAGES COMPLETED DATE/TIME: 03/15/2020 11:02 am REASON FOR STUDY: ACUTE LT SHOULDER PAIN, LT LAT ANKLE PAIN, CHRONIC RT KNEE PAIN COMPARISON: None. NUMBER OF VIEWS: Three views left shoulder. LIMITATIONS: None. FINDINGS: There is no acute or significant bone, joint or soft tissue abnormality. OTHER: No other significant finding. IMPRESSION: NORMAL STUDY. TECHNICAL DOCUMENTATION: JOB ID: [id number] Reading location - IP/workstation name: [email or web address]
--- NOTE | 2020-03-15 12:50 | RADIOLOGY REPORT (SQ) ---
EXAM DESCRIPTION: KNEE RIGHT 4 VIEWS IMAGES COMPLETED DATE/TIME: 03/15/2020 11:02 am REASON FOR STUDY: ACUTE LT SHOULDER PAIN, LT LAT ANKLE PAIN, CHRONIC RT KNEE PAIN COMPARISON: None. NUMBER OF VIEWS: Four views right knee LIMITATIONS: None. FINDINGS: No fracture. Maintained joint spaces. Sizable joint effusion is suggested. OTHER: No other significant finding. IMPRESSION: Joint effusion. No fracture seen. TECHNICAL DOCUMENTATION: JOB ID: [id number] Reading location - IP/workstation name: [email or web address]
== END ==
LOC: OD 10:31
PROVIDERS: ATTEND Family Medicine
DX: M25.561 Pain in right knee (principal); M25.512 Pain in left shoulder; M25.572 Pain in left ankle and joints of left foot